=== PATIENT | female | born 1985 | race African-American/Black ===

== ENCOUNTER 2020-07-21 11:10 | Emergency (ER) | payer SELFPAY ==
[2020-07-21] MEDS ORDERED: KETOROLAC TROMETHAMINE 60 MG/2 ML SDV IM ONE (12:23)
--- NOTE | 2020-07-21 12:27 | ER Document Report ---
HPI - HPI Time Seen by Provider: 07/21/20 12:19 Notes: 35-year-old female to the emergency department with complaints of right hand pain and swelling that began on Tuesday. 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 She states she had her out and came down on the hand and had immediate pain. She states it began to swell and she has had bruising. She states that it hurts a lot to move the thumb as well as all the fingers. She states that she has been icing and elevating the hand. She is not taking anything for the pain. She is right-hand dominant. - ROS Systems Reviewed and Negative: Yes All other systems reviewed and negative - CONSTITUTIONAL Constitutional: DENIES: Fever, Chills - EENT EENT: DENIES: Sore Throat, Ear Pain - NEURO Neurology: DENIES: Headache - CARDIOVASCULAR Cardiovascular: DENIES: Chest pain - RESPIRATORY Respiratory: DENIES: Trouble Breathing, Coughing - GASTROINTESTINAL Gastrointestinal: DENIES: Abdominal Pain, Nausea - MUSCULOSKELETAL Musculoskeletal: REPORTS: Extremity pain Notes: See HPI - DERM Skin Color: Normal Skin Problems: None Past Medical History - General Information source: Patient - Social History Smoking Status: Never Smoker Frequency of alcohol use: None Drug Abuse: None Family History: None, Reviewed & Not Pertinent Past Surgical History: Reports: Hx Section - Immunizations Hx Diphtheria, Pertussis, Tetanus Vaccination: Yes - Jul 2013 [facility] Provider Document - CONSTITUTIONAL Agree With Documented VS: Yes Exam Limitations: No Limitations General Appearance: WD/WN - INFECTION CONTROL TRAVEL OUTSIDE OF THE [place] IN LAST 30 DAYS: No - HEENT HEENT: Atraumatic, Normocephalic, PERRLA - NECK Neck: Normal Inspection, Supple - RESPIRATORY Respiratory: Breath Sounds Normal, No Respiratory Distress. negative: Rales, Rhonchi, Wheezing - CARDIOVASCULAR Cardiovascular: Regular Rate, Regular Rhythm, No Murmur - GI/ABDOMEN Gastrointestinal: Abdomen Soft, Abdomen Non-Tender - BACK Back: Normal Inspection - MUSCULOSKELETAL/EXTREMETIES Notes: patient is guarding her right hand. There is edema over the thenar eminence with mild ecchymosis. Patient has increased pain when testing flexion/extension of the right thumb -- strength is approximately 4/5, all other fingers with 5/5 strength against resistance in testing of flexion and extension. + right snuff box tenderness. Hand crime scene examiner is a 4/5 in the right hand likely due to pain. Radial pulses intact and equal. cap refill is less than 2 sec in all fingers. non tender to palpation over the right wrist, elbow, and shoulder. - NEURO Level of Consciousness: Awake, Alert, Appropriate Motor/Sensory: No Motor Deficit, No Sensory Deficit - DERM Integumentary: Warm, Dry, No Rash Course - Re-evaluation Re-evalutation: 07/21/20 Impression: Right thumb pain. Suspect a gamekeeper's thumb injury. Will place in thumb spica splint. Will send home with nsaid. Encouraged ortho follow up with out fail. Patient agrees with the plan. - Vital Signs Vital signs: Temp Pulse Resp BP Pulse Ox 98.0 F 82 16 127/69 H 98 07/21/20 12:10 07/21/20 12:10 07/21/20 12:10 07/21/20 12:10 07/21/20 12:10 Procedures - Immobilization Right Hand Thumb Pre-Proc Neuro Vasc Exam: Normal Immobilizer type: Thumb spica Performed by: PCT Post-Proc Neuro Vasc Exam: Normal, Unchanged from pre-exam Alignment checked and good: Yes Discharge - Discharge Clinical Impression: Hand pain, right Thumb injury Qualifiers: Encounter type: initial encounter Laterality: right Qualified Code(s): S69.91XA - Unspecified injury of right wrist, hand and finger(s), initial encounter Gamekeeper's thumb of right hand Qualifiers: Encounter type: initial encounter Qualified Code(s): S53.31XA - Traumatic rupture of right ulnar collateral ligament, initial encounter Condition: Stable Disposition: HOME, SELF-CARE Additional Instructions: Please follow-up with orthopedist without fail. Wear splint until you are cleared by the orthopedist. You have an injury concerning for gamekeeper's thumb. This is when you strain your collateral ligament and the thumb. Take pain medicines as prescribed. Continue to ice the hand 3 times a day for 20 minutes at a time. Return if worsening symptoms. Prescriptions: Diclofenac Sodium [Voltaren 50 Mg Tablet.Dr] 50 mg PO BID #20 tablet.dr Forms: Special Work Note Referrals: KYLER HULL DO [ACTIVE STAFF] - Follow up in 3-5 days (for orthopedic follow up)
--- NOTE | 2020-07-21 13:13 | RADIOLOGY REPORT (SQ) ---
EXAM DESCRIPTION: HAND RIGHT 3 VIEWS IMAGES COMPLETED DATE/TIME: 07/21/2020 12:55 pm REASON FOR STUDY: right hand injury COMPARISON: None. EXAM PARAMETERS: NUMBER OF VIEWS: Three views. TECHNIQUE: AP, lateral and oblique radiographic images acquired of the right hand. LIMITATIONS: None. FINDINGS: MINERALIZATION: Normal. BONES: No acute fracture or dislocation. No worrisome bone lesions. JOINTS: No effusions. SOFT TISSUES: No soft tissue swelling. No foreign body. OTHER: No other significant finding. IMPRESSION: NEGATIVE STUDY OF THE RIGHT HAND. NO RADIOGRAPHIC EVIDENCE OF ACUTE INJURY. TECHNICAL DOCUMENTATION: JOB ID: [id number] 2010 [employer]- All Rights Reserved Reading location - IP/workstation name: [email or web address]
[2020-07-21 14:00] VITALS: BP 128/79
== END 2020-07-21 13:58 | disposition home or self-care (01) ==
LOC: ER 11:10
DX: S53.31XA Traumatic rupture of right ulnar collateral ligament, initial encounter (principal); W19.XXXA Unspecified fall, initial encounter; Y93.41 Activity, dancing
CPT/HCPCS: 99284; 96372; 73130; 29125; J1885